=== PATIENT | female | born 1950 | race Caucasian/White ===

== ENCOUNTER 2021-04-21 11:34 | Emergency (ER) | payer MEDICARE, OTHER, SELFPAY ==
[2021-04-21 11:46] VITALS: PULSE 136; RESP 58; TEMP 36.6; O2SAT 96; BMI 24.5
--- NOTE | 2021-04-21 11:53 | DI.CT.S_ITS ---
PROCEDURE: CT CERVICAL SPINE WO CON INDICATIONS: hit head, neck pain, h/o cervical surgeries. TECHNIQUE: Noncontrast 3 mm thick sections acquired from the skull base to the T4 level. Sagittal and coronal reformats were then constructed. For radiation dose reduction, the following was used: automated exposure control, adjustment of mA and/or kV according to patient size. COMPARISON: None. FINDINGS: Image quality: Excellent. Bones: No fractures or dislocations. Scoliosis. Moderate degenerative disc disease at C4-C5. Discectomy and anterior fusion at C5-T2. Posterior fusion at C5-T8. Visualized superior ribs are intact. Soft tissues: Prevertebral soft tissues are normal in thickness. No paravertebral hematomas. No apical pneumothoraces. IMPRESSION: 1. No acute abnormalities in cervical spine. 2. Degenerative and postsurgical changes as described. Dictated by: Mary Carmen Cruz M.D. on 04/21/2021 at 12:23 Approved by: Mary Carmen Cruz M.D. on 04/21/2021 at 12:29
--- NOTE | 2021-04-21 11:56 | DI.CT.S_ITS ---
PROCEDURE: CT HEAD/BRAIN WO CON INDICATIONS: hit head, neck pain, h/o cervical surgeries. TECHNIQUE: Noncontrast 4.5 mm thick angled axial sections acquired from the foramen magnum to the vertex, with coronal and sagittal reformats. For radiation dose reduction, the following was used: automated exposure control, adjustment of mA and/or kV according to patient size. COMPARISON: None. FINDINGS: Image quality: Excellent. CSF spaces: Basal cisterns are patent. No extra-axial fluid collections. The ventricles are symmetric in size and shape. Brain: No intracranial bleeds or masses. There is cerebral volume loss for age. There are mild periventricular and deep white matter chronic small vessel ischemic changes. There is intracranial internal carotid artery atherosclerosis. Skull and face: Calvarium and visualized facial bones appear intact, without suspicious lesions. Sinuses: Visualized sinuses and mastoids are clear. IMPRESSION: 1. No acute intracranial abnormalities. Dictated by: Mary Carmen Cruz M.D. on 04/21/2021 at 12:21 Approved by: Mary Carmen Cruz M.D. on 04/21/2021 at 12:23
[2021-04-21 14:05] VITALS: BP 139/73; PULSE 74; RESP 16; O2SAT 95
--- NOTE | 2021-04-21 15:39 | ED.HEATRA ---
HPI - Head Injury <Tanja Hawley PA-C - Last Filed: 04/21/21 15:44> General Chief complaint: Head Injury Stated complaint: Head injury yesterday, pain, limited motion Time Seen by Provider: 04/21/21 15:03 Mode of arrival: Wheelchair History of Present Illness HPI Narrative: 70-year-old female with no reported past medical history presents to the ED status post a head injury sustained last night. Patient had a heavy trailer hitch fall on her head last night. Patient did not lose consciousness. Patient denies being on blood thinners. Patient denies nausea, vomiting. Patient denies some neck stiffness and pain, pain at the site of the injury of the head. Related Data Allergies Allergy/AdvReac Type Severity Reaction Status Date / Time amoxicillin [From Augmentin] Allergy Severe Vomiting Verified 04/21/21 14:03 clavulanic acid Allergy Severe Vomiting Verified 04/21/21 14:03 [From Augmentin] etanercept [From Enbrel] Allergy Intermediate Verified 04/21/21 14:07 infliximab [From Remicade] Allergy Intermediate Verified 04/21/21 14:07 metronidazole [From Flagyl] Allergy Intermediate Swelling Verified 04/21/21 14:05 of Lip/Tongue/Throat morphine Allergy Intermediate ITCHING Verified 04/21/21 14:08 oxycodone [From Percocet] Allergy Intermediate ITCHING Verified 04/21/21 14:05 vortioxetine Allergy Intermediate ITCHING Verified 04/21/21 14:05 [From Trintellix] escitalopram [From Lexapro] AdvReac Severe Anxiety Verified 04/21/21 14:08 metoclopramide [From Reglan] AdvReac Severe Agitated Verified 04/21/21 14:03 adhesive AdvReac Intermediate Redness of Verified 04/21/21 14:08 Skin duloxetine [From Cymbalta] AdvReac Intermediate Dizziness Verified 04/21/21 14:03 metformin AdvReac Unknown Verified 04/21/21 14:07 levofloxacin [From Levaquin] AdvReac Palpitation Verified 04/21/21 14:05 s Review of Systems <Tanja Hawley PA-C - Last Filed: 04/21/21 15:44> Review of Systems Narrative: Pain at the crown of the head at the site of injury, neck stiffness. ROS Unobtainable: All systems reviewed & are unremarkable except as noted in HPI and below Constitutional Constitutional: Denies chills, Denies fatigue, Denies fever(s), Denies frequent falls, Denies lethargy and Denies weakness Eyes Eyes: Denies change in vision, Denies eye discharge, Denies irritation and Denies loss of vision ENT Ears, Nose, Mouth, and Throat: Denies change in voice, Denies dizziness, Denies neck pain, Denies sore throat and Denies throat swelling Cardiovascular Cardiovascular: Denies chest pain, Denies irregular heart rhythm, Denies lightheadedness, Denies palpitations, Denies dyspnea, Denies dyspnea on exertion and Denies orthopnea Respiratory Respiratory: Denies cough, Denies dyspnea, Denies dyspnea on exertion and Denies wheezing Gastrointestinal Gastrointestinal: Denies abdominal pain, Denies change in bowel habits, Denies diarrhea, Denies nausea and Denies vomiting Genitourinary Genitourinary: Denies hematuria, Denies flank pain, Denies urinary incontinence and Denies urinary urgency Musculoskeletal Musculoskeletal: Denies back pain, Denies muscle weakness, Denies neck pain, Denies numbness and Denies tingling Integumentary/Breasts Skin/Breast: Denies pruritus, Denies erythema, Denies rash and Denies wounds Neurologic Neurologic: Denies behavioral changes, Denies confusion, Denies dizziness, Denies frequent falls, Denies loss of vision, Denies numbness, Denies tingling and Denies weakness Psychiatric Psychiatric: Denies anxiety, Denies behavioral changes, Denies confusion, Denies depression, Denies homicidal ideation and Denies suicidal ideation Endocrine Endocrine: Denies fatigue, Denies flushing and Denies palpitations Hematologic/Lymphatic Hematologic/Lymphatic: Denies easy bruising Allergic/Immunologic Allergic/Immunologic: Denies urticaria, Denies throat swelling and Denies wheezing Patient History <Tanja Hawley PA-C - Last Filed: 04/21/21 15:44> Social History Smoking Status: Former smoker Smoking Status: Former smoker alcohol intake frequency: 0-2 drinks per day Substance Use Type: does not use Exam <Tanja Hawley PA-C - Last Filed: 04/21/21 15:44> Initial Vital Signs Initial Vital Signs: Vital Signs Temperature 97.9 F 04/21/21 11:46 Pulse Rate 136 H 04/21/21 11:46 Respiratory Rate 58 H 04/21/21 11:46 Pulse Oximetry 96 04/21/21 11:46 Const General: cooperative, healthy appearing and comfortable [facility] Head: No Freeman's sign, No hematoma, No laceration, No palpable skull fracture, No raccoon eyes, No scalp lesion and scalp tenderness Eyes General: appearance normal, both eyes and all related structures Neck Neck: normal visual inspection and full ROM Other: Paraspinal tenderness to palpation of neck Resp Effort & Inspection: normal respiratory effort Auscultation: clear to auscultation bilaterally Cardio Rate: regular rate Rhythm: regular rhythm Back/Spine/Pelvis Back: normal to inspection Other: No midline tenderness to palpation Skin General: no rashes or lesions noted Neuro General: patient alert, patient awake and patient oriented x3 Psych Appearance: grossly normal Mental Status: mental status grossly normal <Mago Beckford DO - Last Filed: 04/25/21 19:10> Initial Vital Signs Initial Vital Signs: Vital Signs Temperature 97.9 F 04/21/21 11:46 Pulse Rate 136 H 04/21/21 11:46 Respiratory Rate 58 H 04/21/21 11:46 Pulse Oximetry 96 04/21/21 11:46 Course <Tanja Hawley PA-C - Last Filed: 04/21/21 15:44> Orders Ordered: ED Orders 04/21/21 11:53 CT cervical spine wo con Stat 04/21/21 11:56 CT head/brain wo con Stat Vital Signs Vital signs: Vital Signs - 8 hr 04/21/21 11:46 04/21/21 14:05 Temperature 97.9 F Pulse Rate 136 H 74 Respiratory Rate 58 H 16 Blood Pressure 139/73 Pulse Oximetry 96 95 <Mago Beckford DO - Last Filed: 04/25/21 19:10> Orders Ordered: ED Orders 04/21/21 11:53 CT cervical spine wo con Stat 04/21/21 11:56 CT head/brain wo con Stat Vital Signs Vital signs: Vital Signs - 8 hr 04/21/21 11:46 04/21/21 14:05 Temperature 97.9 F Pulse Rate 136 H 74 Respiratory Rate 58 H 16 Blood Pressure 139/73 Pulse Oximetry 96 95 MDM - Head Injury <Tanja Hawley PA-C - Last Filed: 04/21/21 15:44> Imaging Data CT scan - head: Radiologist's Impression: PROCEDURE:? CT HEAD/BRAIN WO CON ? INDICATIONS:? hit head, neck pain, h/o cervical surgeries. ? TECHNIQUE:? Noncontrast 4.5 mm thick angled axial sections acquired from the foramen magnum to the vertex, with coronal and sagittal reformats.? For radiation dose reduction, the following was used:? automated exposure control, adjustment of mA and/or kV according to patient size.? ? COMPARISON:? None. ? FINDINGS:? Image quality:? Excellent.? ? CSF spaces:? Basal cisterns are patent.? No extra-axial fluid collections.? The ventricles are symmetric in size and shape.? ? Brain:? No intracranial bleeds or masses.? There is cerebral volume loss for age.? There are mild periventricular and deep white matter chronic small vessel ischemic changes.? There is intracranial internal carotid artery atherosclerosis.? ? Skull and face:? Calvarium and visualized facial bones appear intact, without suspicious lesions.? ? Sinuses:? Visualized sinuses and mastoids are clear.? ? IMPRESSION:? ? 1. No acute intracranial abnormalities. ? ? Dictated by: Mary Carmen Cruz M.D. on 04/21/2021 at 12:21 ? ? Approved by: Mary Carmen Cruz M.D. on 04/21/2021 at 12:23 ? CT - cervical spine: Radiologist's Impression: PROCEDURE:? CT CERVICAL SPINE WO CON ? INDICATIONS:? hit head, neck pain, h/o cervical surgeries. ? TECHNIQUE:? Noncontrast 3 mm thick sections acquired from the skull base to the T4 level.? Sagittal and coronal reformats were then constructed.? For radiation dose reduction, the following was used:? automated exposure control, adjustment of mA and/or kV according to patient size.? ? COMPARISON:? None. ? FINDINGS:? Image quality:? Excellent.? ? Bones:? No fractures or dislocations.? Scoliosis.? Moderate degenerative disc disease at C4-C5.? Discectomy and anterior fusion at C5-T2.? Posterior fusion at C5-T8.? Visualized superior ribs are intact.? ? Soft tissues:? Prevertebral soft tissues are normal in thickness.? No paravertebral hematomas.? No apical pneumothoraces.? ? ? IMPRESSION:? ? 1. No acute abnormalities in cervical spine. 2. Degenerative and postsurgical changes as described.? Dictated by: Mary Carmen Cruz M.D. on 04/21/2021 at 12:23 ? ? Approved by: Mary Carmen Cruz M.D. on 04/21/2021 at 12:29 ? MDM Narrative Medical decision making narrative: 70-year-old female with no reported past medical history presents to the ED status post a head injury sustained last night. Concern for fracture versus intracranial bleeding versus concussion. CT head and CT C-spine were obtained, showed no acute findings. Patient was counseled on symptoms of concussion, ED return precautions. Patient verbalized understanding. Patient discharged. Discharge Plan Departure Patient Disposition: Home Clinical Impression: Closed head injury Instructions: DI for Closed Head Injury Activity Restrictions/Additional Instructions: You were evaluated in the ED today for a closed head injury. Your CT head and CT C-spine did not show any acute findings. Your symptoms are likely due to a concussion. You may experience headaches, occasional nausea/vomiting, fatigue, neck pain, sleepiness. Please return to the ED if you experience uncontrollable nausea/vomiting, headache, lethargy. Please follow-up with your PCP for post concussion management. <Mago Beckford, DO - Last Filed: 04/25/21 19:10> [facility] ED Attending Reji Attestation: I was immediately available in the department for consultation. Documentation has been reviewed.
[2021-04-21 16:06] VITALS: BP 128/69; PULSE 61; RESP 16; TEMP 36.6; O2SAT 97
== END 2021-04-21 16:00 | disposition home or self-care (01) ==
PROVIDERS: Emergency Provider Student in an Organized Health Care Education/Training Program
DX: S09.90XA Unspecified injury of head, initial encounter (principal); Z87.891 Personal history of nicotine dependence; W20.8XXA Other cause of strike by thrown, projected or falling object, initial encounter
CPT/HCPCS: 70450; 72125; 99284